=== PATIENT | male | born 1960 | race Caucasian/White ===

== ENCOUNTER 2020-10-21 14:13 | Inpatient (IN) ==
[2020-10-21] MEDS ORDERED: SODIUM CHLORIDE 0.9% 1,000 ML IV STA (15:04)
[2020-10-21 15:59] LABS: Basophils # 0.1 10*3/uL (0.0-0.2); Basophils % 0.8 % (0.0-0.8); Eosinophils # 0.2 10*3/uL (0.0-0.87); Eosinophils % 2.1 % (0.00-10.9); Hematocrit 22.4 VOL% (42.0-52.0); Hemoglobin 6.8 GM/DL (14.0-18.0); Immature Granulocytes % 0.4 %; Immature Granulocytes Absolute 0.03 #; Lymphocytes % 13.2 % (21.2-54.2); Mean Corpuscular HGB Conc 30.4 GM/DL (32-36); Mean Corpuscular Volume 87.2 FL (87-102); Mean Platelet Volume 10.7 FL (9.6-12.0); Monocytes % 5.8 % (1.7-12.7); Neutrophils % 77.7 % (38.7-73.9); Platelet Count 406 T/CUMM (130-400); Red Blood Count 2.57 MC/CUMM (3.8-5.5); Red Cell Distribution Width 14.7 % (9.3-17.3); White Blood Count 7.6 T/CUMM (4-12)
[2020-10-21 16:26] LABS: Alanine Aminotransferase 12 U/L (16-61); Albumin 2.5 G/DL (3.4-5.0); Alkaline Phosphatase 85 U/L (45-117); Aspartate Amino Transferase 10 U/L (0-37); Bilirubin,Total < 0.39 MG/DL (0.2-1.0); Blood Urea Nitrogen 12 MG/DL (7-18); Calcium 8.5 MG/DL (8.5-10.1); Estimated Glom Filtration Rate 97 ML/MIN; Glucose 113 MG/DL (74-106); Osmolality,Calculated 277.5 MOS/KG (273-304); Total Protein 6.4 G/DL (6.4-8.3)
[2020-10-21 17:22] LABS: INR 1.1; PT Patient Result 11.4 SECS (9.8-11.9); Partial Thromboplastin Time 27.4 SECS (23.9-33.8)
[2020-10-21] MEDS ORDERED: DEXTROSE 50% 25 GM/50 ML VIAL IV PRN (18:06)
[2020-10-21] MEDS ORDERED: GLUCAGON 1 MG VIAL IM PRN (18:06)
[2020-10-21] MEDS ORDERED: ONDANSETRON 4 MG/2 ML VIAL IV PRN (18:06)
[2020-10-21] MEDS ORDERED: ACETAMINOPHEN 325 MG TABLET PO PRN (18:06)
[2020-10-21] MEDS ORDERED: SODIUM CHLORIDE 0.9% 1,000 ML IV PRN (18:08)
[2020-10-21 18:32] LABS: Platelet Estimate Adequate
[2020-10-21 18:33] LABS: Anisocytosis Slight; Ovalocytes Few
[2020-10-21 18:34] LABS: Hypochromasia Slight
[2020-10-21] MEDS: TAMSULOSIN 0.4 MG CAPSULE PO SCH (21:25)
[2020-10-21] MEDS: PANTOPRAZOLE 40 MG VIAL IV SCH (21:25)
[2020-10-22 05:17] LABS: Basophils # 0.1 10*3/uL (0.0-0.2); Basophils % 0.7 % (0.0-0.8); Eosinophils # 0.3 10*3/uL (0.0-0.87); Eosinophils % 4.2 % (0.00-10.9); Hematocrit 25.1 VOL% (42.0-52.0); Hemoglobin 7.8 GM/DL (14.0-18.0); Immature Granulocytes % 0.4 %; Immature Granulocytes Absolute 0.03 #; Lymphocytes # 1.5 10*3/uL (1.4-4.0); Lymphocytes % 21.7 % (21.2-54.2); Mean Corpuscular HGB Conc 31.1 GM/DL (32-36); Mean Corpuscular Volume 86.9 FL (87-102); Mean Platelet Volume 9.1 FL (9.6-12.0); Monocytes % 7.3 % (1.7-12.7); Neutrophils % 65.7 % (38.7-73.9); Platelet Count 460 T/CUMM (130-400); Red Blood Count 2.89 MC/CUMM (3.8-5.5); Red Cell Distribution Width 14.3 % (9.3-17.3); White Blood Count 7.1 T/CUMM (4-12)
[2020-10-22 05:34] LABS: Calcium 8.4 MG/DL (8.5-10.1); Osmolality,Calculated 276.4 MOS/KG (273-304)
[2020-10-22] MEDS: LEVOTHYROXINE 50 MCG TABLET PO SCH (06:01)
[2020-10-22] MEDS: TAMSULOSIN 0.4 MG CAPSULE PO SCH ×2 (09:37→21:21)
[2020-10-22] MEDS: PANTOPRAZOLE 40 MG VIAL IV SCH ×2 (09:37→21:20)
[2020-10-22] MEDS: lisinopriL 10 MG TABLET PO SCH (09:37)
[2020-10-22] MEDS ORDERED: VANCOMYCIN INJ 1,250 MG in SODIUM CHLORIDE 0.9% 250 ML IV ONE (10:04)
[2020-10-22] MEDS ORDERED: MIDAZOLAM 2 MG/2 ML VIAL ONE (10:33)
[2020-10-22] MEDS ORDERED: fentaNYL 100 MCG/2 ML VIAL ONE (10:34)
[2020-10-22] MEDS: LACTATED RINGERS 1,000 ML IV SCH (10:35)
[2020-10-22] MEDS ORDERED: BUPIVACAINE MPF 0.25% 30 ML VIAL ONE (10:47)
[2020-10-22] MEDS ORDERED: LIDOCAINE 1%/EPI INJ 20 ML VIAL ONE (10:47)
[2020-10-22] MEDS ORDERED: ONDANSETRON 4 MG/2 ML VIAL ONE (11:13)
[2020-10-22] MEDS ORDERED: FAMOTIDINE 20 MG/2 ML VIAL IV ONE (11:13)
[2020-10-22 15:30] LABS: Bilirubin,Urine Negative (Negative); Blood, Urine Small mg/dL (Negative); Glucose,Urine (UA) Negative (Negative); Ketones,Urine Negative (Negative); Nitrite,Urine Negative (Negative); Protein,Urine Negative; RBC,Urine 3 /HPF (0-4); Urine Appearance CLEAR (Clear); Urine Color Straw (Yellow); Urine Specific Gravity 1.014 (1.001-1.035); Urine Urobilinogen < 2.0 EU/DL (0.2-1.0); WBC,Urine <1 /HPF (0-6)
[2020-10-22] MEDS: BISACODYL 5 MG TABLET PO SCH ×3 (15:30→21:20)
[2020-10-22] MEDS ORDERED: POLYETHYLENE GLYCOL POWDER 255 GM BOTTLE PO ONE (19:00)
[2020-10-22] MEDS ORDERED: MAGNESIUM CITRATE 300 ML BOTTLE PO ONE (21:00)
[2020-10-23] MEDS: LACTATED RINGERS 1,000 ML IV SCH ×2 (04:07→16:37)
[2020-10-23] MEDS: BISACODYL 5 MG TABLET PO SCH (05:49)
[2020-10-23] MEDS: LEVOTHYROXINE 50 MCG TABLET PO SCH (05:50)
[2020-10-23] MEDS ORDERED: VANCOMYCIN INJ 1,250 MG in SODIUM CHLORIDE 0.9% 250 ML IV ONE (06:00)
[2020-10-23 06:12] LABS: Basophils # 0.1 10*3/uL (0.0-0.2); Basophils % 0.5 % (0.0-0.8); Eosinophils # 0.3 10*3/uL (0.0-0.87); Eosinophils % 2.4 % (0.00-10.9); Hematocrit 25.3 VOL% (42.0-52.0); Hemoglobin 7.9 GM/DL (14.0-18.0); Immature Granulocytes % 0.5 %; Immature Granulocytes Absolute 0.05 #; Lymphocytes # 1.7 10*3/uL (1.4-4.0); Lymphocytes % 16.2 % (21.2-54.2); Mean Corpuscular HGB Conc 31.2 GM/DL (32-36); Mean Corpuscular Volume 86.3 FL (87-102); Mean Platelet Volume 9.3 FL (9.6-12.0); Monocytes % 7.2 % (1.7-12.7); Neutrophils % 73.2 % (38.7-73.9); Platelet Count 465 T/CUMM (130-400); Red Blood Count 2.93 MC/CUMM (3.8-5.5); Red Cell Distribution Width 14.3 % (9.3-17.3); White Blood Count 10.6 T/CUMM (4-12)
[2020-10-23 06:32] LABS: Calcium 8.7 MG/DL (8.5-10.1); Osmolality,Calculated 275.4 MOS/KG (273-304)
[2020-10-23] MEDS ORDERED: PROMETHAZINE INJ 25 MG in SODIUM CHLORIDE 0.9% 50 ML IV PRN (06:48)
[2020-10-23] MEDS: TAMSULOSIN 0.4 MG CAPSULE PO SCH (09:15)
[2020-10-23] MEDS: lisinopriL 10 MG TABLET PO SCH (09:16)
[2020-10-23] MEDS: PANTOPRAZOLE 40 MG VIAL IV SCH ×2 (09:16→20:35)
[2020-10-23] MEDS ORDERED: ETOMIDATE 20 MG/10 ML VIAL IV ONE (13:21)
[2020-10-23] MEDS ORDERED: LIDOCAINE 2% 5 ML VIAL ONE (13:21)
[2020-10-23] MEDS ORDERED: propofoL 200 MG/20 ML VIAL IV ONE (13:21)
[2020-10-23] MEDS ORDERED: PHENYLEPHRINE 1 MG/10 ML SYRINGE IV ONE (13:21)
[2020-10-24] MEDS: TAMSULOSIN 0.4 MG CAPSULE PO SCH ×3 (00:14→20:38)
[2020-10-24] MEDS: LEVOTHYROXINE 50 MCG TABLET PO SCH (05:54)
[2020-10-24 06:47] LABS: Basophils # 0.1 10*3/uL (0.0-0.2); Basophils % 0.6 % (0.0-0.8); Eosinophils # 0.3 10*3/uL (0.0-0.87); Eosinophils % 2.9 % (0.00-10.9); Hematocrit 24.5 VOL% (42.0-52.0); Hemoglobin 7.6 GM/DL (14.0-18.0); Immature Granulocytes % 0.5 %; Immature Granulocytes Absolute 0.04 #; Lymphocytes # 1.7 10*3/uL (1.4-4.0); Lymphocytes % 19.5 % (21.2-54.2); Mean Corpuscular Volume 87.2 FL (87-102); Mean Platelet Volume 9.2 FL (9.6-12.0); Monocytes % 6.6 % (1.7-12.7); Neutrophils % 69.9 % (38.7-73.9); Platelet Count 402 T/CUMM (130-400); Red Blood Count 2.81 MC/CUMM (3.8-5.5); Red Cell Distribution Width 14.6 % (9.3-17.3); White Blood Count 8.5 T/CUMM (4-12)
[2020-10-24 07:19] LABS: Calcium 8.5 MG/DL (8.5-10.1); Osmolality,Calculated 276.4 MOS/KG (273-304)
[2020-10-24] MEDS: LACTATED RINGERS 1,000 ML IV SCH ×2 (08:37→16:09)
[2020-10-24] MEDS: lisinopriL 10 MG TABLET PO SCH (08:37)
[2020-10-24] MEDS: PANTOPRAZOLE 40 MG VIAL IV SCH (08:37)
[2020-10-24] MEDS: POLYETHYLENE GLYCOL POWDER 17 GM PACK PO SCH ×2 (15:04→20:38)
[2020-10-24] MEDS: PANTOPRAZOLE 40 MG TABLET PO SCH (20:38)
[2020-10-25] MEDS: LACTATED RINGERS 1,000 ML IV SCH ×3 (01:01→20:34)
[2020-10-25 05:52] LABS: Basophils # 0.1 10*3/uL (0.0-0.2); Basophils % 0.7 % (0.0-0.8); Eosinophils # 0.4 10*3/uL (0.0-0.87); Hematocrit 24.4 VOL% (42.0-52.0); Hemoglobin 7.4 GM/DL (14.0-18.0); Immature Granulocytes % 0.4 %; Immature Granulocytes Absolute 0.04 #; Lymphocytes # 1.5 10*3/uL (1.4-4.0); Lymphocytes % 15.6 % (21.2-54.2); Mean Corpuscular HGB Conc 30.3 GM/DL (32-36); Mean Corpuscular Volume 88.1 FL (87-102); Mean Platelet Volume 9.1 FL (9.6-12.0); Monocytes % 6.8 % (1.7-12.7); Neutrophils % 72.5 % (38.7-73.9); Platelet Count 375 T/CUMM (130-400); Red Blood Count 2.77 MC/CUMM (3.8-5.5); Red Cell Distribution Width 14.7 % (9.3-17.3); White Blood Count 9.4 T/CUMM (4-12)
[2020-10-25] MEDS: LEVOTHYROXINE 50 MCG TABLET PO SCH (06:05)
[2020-10-25 06:16] LABS: Calcium 8.3 MG/DL (8.5-10.1); Osmolality,Calculated 277.4 MOS/KG (273-304)
[2020-10-25] MEDS ORDERED: SODIUM CHLORIDE 0.9% 1,000 ML IV PRN (08:29)
[2020-10-25] MEDS: PANTOPRAZOLE 40 MG TABLET PO SCH ×2 (09:23→20:34)
[2020-10-25] MEDS: lisinopriL 10 MG TABLET PO SCH (09:23)
[2020-10-25] MEDS: POLYETHYLENE GLYCOL POWDER 17 GM PACK PO SCH ×3 (09:24→20:34)
[2020-10-25] MEDS: TAMSULOSIN 0.4 MG CAPSULE PO SCH ×2 (12:44→20:34)
[2020-10-26] MEDS: LACTATED RINGERS 1,000 ML IV SCH ×7 (02:47→21:21)
[2020-10-26] MEDS: LEVOTHYROXINE 50 MCG TABLET PO SCH (06:08)
[2020-10-26 06:41] LABS: Basophils # 0.1 10*3/uL (0.0-0.2); Basophils % 0.7 % (0.0-0.8); Eosinophils # 0.6 10*3/uL (0.0-0.87); Eosinophils % 6.5 % (0.00-10.9); Hematocrit 27.2 VOL% (42.0-52.0); Hemoglobin 8.4 GM/DL (14.0-18.0); Immature Granulocytes % 0.4 %; Immature Granulocytes Absolute 0.04 #; Lymphocytes # 1.7 10*3/uL (1.4-4.0); Lymphocytes % 18.8 % (21.2-54.2); Mean Corpuscular HGB Conc 30.9 GM/DL (32-36); Mean Corpuscular Volume 88.3 FL (87-102); Mean Platelet Volume 9.3 FL (9.6-12.0); Monocytes % 6.5 % (1.7-12.7); Neutrophils % 67.1 % (38.7-73.9); Platelet Count 382 T/CUMM (130-400); Red Blood Count 3.08 MC/CUMM (3.8-5.5); Red Cell Distribution Width 14.9 % (9.3-17.3); White Blood Count 8.9 T/CUMM (4-12)
[2020-10-26 07:17] LABS: Calcium 8.1 MG/DL (8.5-10.1); Osmolality,Calculated 277.4 MOS/KG (273-304)
[2020-10-26] MEDS: POLYETHYLENE GLYCOL POWDER 17 GM PACK PO SCH ×3 (09:12→21:21)
[2020-10-26] MEDS: PANTOPRAZOLE 40 MG TABLET PO SCH ×2 (09:12→21:21)
[2020-10-26] MEDS: TAMSULOSIN 0.4 MG CAPSULE PO SCH ×2 (09:12→21:21)
[2020-10-26] MEDS: lisinopriL 10 MG TABLET PO SCH (09:12)
[2020-10-27 05:25] LABS: Basophils # 0.1 10*3/uL (0.0-0.2); Basophils % 0.7 % (0.0-0.8); Eosinophils # 0.5 10*3/uL (0.0-0.87); Eosinophils % 5.9 % (0.00-10.9); Hematocrit 28.3 VOL% (42.0-52.0); Hemoglobin 8.9 GM/DL (14.0-18.0); Immature Granulocytes % 0.3 %; Immature Granulocytes Absolute 0.03 #; Lymphocytes # 1.6 10*3/uL (1.4-4.0); Lymphocytes % 16.9 % (21.2-54.2); Mean Corpuscular HGB Conc 31.4 GM/DL (32-36); Mean Corpuscular Volume 87.3 FL (87-102); Mean Platelet Volume 9.8 FL (9.6-12.0); Monocytes % 6.8 % (1.7-12.7); Neutrophils % 69.4 % (38.7-73.9); Platelet Count 393 T/CUMM (130-400); Red Blood Count 3.24 MC/CUMM (3.8-5.5); White Blood Count 9.2 T/CUMM (4-12)
[2020-10-27 05:48] LABS: Calcium 8.6 MG/DL (8.5-10.1); Osmolality,Calculated 277.4 MOS/KG (273-304)
[2020-10-27] MEDS: LEVOTHYROXINE 50 MCG TABLET PO SCH (06:44)
[2020-10-27] MEDS: LACTATED RINGERS 1,000 ML IV SCH ×3 (06:45→22:00)
[2020-10-27] MEDS ORDERED: LIDOCAINE 2% TOP JELLY 20 ML VIAL INTRAURETH ONE (08:33)
[2020-10-27] MEDS: POLYETHYLENE GLYCOL POWDER 17 GM PACK PO SCH ×3 (09:37→20:19)
[2020-10-27] MEDS: TAMSULOSIN 0.4 MG CAPSULE PO SCH ×2 (09:37→20:19)
[2020-10-27] MEDS: PANTOPRAZOLE 40 MG TABLET PO SCH ×2 (09:37→20:19)
[2020-10-27] MEDS: lisinopriL 10 MG TABLET PO SCH (09:37)
[2020-10-27] MEDS ORDERED: GENTAMICIN 80 MG/2 ML VIAL ONE (11:35)
[2020-10-28] MEDS: LACTATED RINGERS 1,000 ML IV SCH ×3 (00:22→20:12)
[2020-10-28] MEDS: LEVOTHYROXINE 50 MCG TABLET PO SCH (06:16)
[2020-10-28 06:18] LABS: Basophils # 0.1 10*3/uL (0.0-0.2); Basophils % 0.6 % (0.0-0.8); Eosinophils # 0.5 10*3/uL (0.0-0.87); Eosinophils % 6.7 % (0.00-10.9); Hematocrit 25.4 VOL% (42.0-52.0); Hemoglobin 8.1 GM/DL (14.0-18.0); Immature Granulocytes % 0.4 %; Immature Granulocytes Absolute 0.03 #; Lymphocytes # 1.5 10*3/uL (1.4-4.0); Mean Corpuscular HGB Conc 31.9 GM/DL (32-36); Mean Corpuscular Volume 88.2 FL (87-102); Mean Platelet Volume 9.7 FL (9.6-12.0); Monocytes % 6.9 % (1.7-12.7); Neutrophils % 66.4 % (38.7-73.9); Platelet Count 350 T/CUMM (130-400); Red Blood Count 2.88 MC/CUMM (3.8-5.5); Red Cell Distribution Width 15.1 % (9.3-17.3); White Blood Count 8.1 T/CUMM (4-12)
[2020-10-28 06:41] LABS: Calcium 8.5 MG/DL (8.5-10.1); Osmolality,Calculated 278.3 MOS/KG (273-304)
[2020-10-28] MEDS: TAMSULOSIN 0.4 MG CAPSULE PO SCH ×2 (08:38→21:46)
[2020-10-28] MEDS: PANTOPRAZOLE 40 MG TABLET PO SCH ×2 (08:39→21:46)
[2020-10-28] MEDS: lisinopriL 10 MG TABLET PO SCH (08:39)
[2020-10-28] MEDS: POLYETHYLENE GLYCOL POWDER 17 GM PACK PO SCH ×3 (08:39→21:47)
[2020-10-29] MEDS: LEVOTHYROXINE 50 MCG TABLET PO SCH (05:56)
[2020-10-29] MEDS: PANTOPRAZOLE 40 MG TABLET PO SCH ×2 (08:22→20:41)
[2020-10-29] MEDS: lisinopriL 10 MG TABLET PO SCH (08:22)
[2020-10-29] MEDS: TAMSULOSIN 0.4 MG CAPSULE PO SCH ×2 (08:22→20:40)
[2020-10-29] MEDS: LACTATED RINGERS 1,000 ML IV SCH ×2 (08:54→16:15)
[2020-10-29] MEDS: POLYETHYLENE GLYCOL POWDER 17 GM PACK PO SCH ×3 (08:54→20:40)
[2020-10-30 05:23] LABS: Basophils # 0.1 10*3/uL (0.0-0.2); Basophils % 0.9 % (0.0-0.8); Eosinophils # 0.6 10*3/uL (0.0-0.87); Eosinophils % 6.8 % (0.00-10.9); Hematocrit 28.2 VOL% (42.0-52.0); Hemoglobin 8.6 GM/DL (14.0-18.0); Immature Granulocytes % 0.5 %; Immature Granulocytes Absolute 0.04 #; Lymphocytes # 1.6 10*3/uL (1.4-4.0); Lymphocytes % 18.3 % (21.2-54.2); Mean Corpuscular HGB Conc 30.5 GM/DL (32-36); Mean Platelet Volume 9.7 FL (9.6-12.0); Monocytes % 7.6 % (1.7-12.7); Neutrophils % 65.9 % (38.7-73.9); Platelet Count 374 T/CUMM (130-400); Red Blood Count 3.17 MC/CUMM (3.8-5.5); Red Cell Distribution Width 15.2 % (9.3-17.3); White Blood Count 8.8 T/CUMM (4-12)
[2020-10-30 05:56] LABS: Calcium 8.7 MG/DL (8.5-10.1); Osmolality,Calculated 276.4 MOS/KG (273-304)
[2020-10-30] MEDS: LEVOTHYROXINE 50 MCG TABLET PO SCH (06:12)
[2020-10-30] MEDS: TAMSULOSIN 0.4 MG CAPSULE PO SCH ×2 (09:17→21:05)
[2020-10-30] MEDS: lisinopriL 10 MG TABLET PO SCH (09:18)
[2020-10-30] MEDS: PANTOPRAZOLE 40 MG TABLET PO SCH ×2 (09:18→21:05)
[2020-10-30] MEDS: POLYETHYLENE GLYCOL POWDER 17 GM PACK PO SCH ×3 (09:19→21:06)
[2020-10-30 20:45] VITALS: BP 107/67
== END 2020-10-30 22:05 | DRG 375 ==
LOC: N.ED 14:13 → SUATTDRO 17:57 → N.EDINP 17:57 → N.3W 19:01
PROVIDERS: ADMIT Internal Medicine; ATTEND Internal Medicine